=== PATIENT | female | born 1945 | race Caucasian/White ===

== ENCOUNTER 2018-04-08 14:38 | Emergency (ER) | payer MEDICARE, BC ==
[~2018-04-08] VITALS: Ht 157.5 cm; Wt 73.0 kg
[~2018-04-08 14:38] MED LIST: LISINOPRIL10 MG PO; NIFEDIPINE ER30 M1 PO
[2018-04-08] MEDS ORDERED: KETOROLAC TROMETHAMINE 60 MG/2 ML VIAL IM ONE (15:15)
[2018-04-08] MEDS ORDERED: HYDROMORPHONE 1MG/1ML INJ IV STA (16:14)
[2018-04-08] MEDS ORDERED: ONDANSETRON HCL INJ 2 MG/ML VIAL IV STA (16:14)
[2018-04-08] MEDS ORDERED: MORPHINE SULFATE 2 MG/ML SYR IV STA (16:26)
== END 2018-04-08 17:25 | disposition short-term general hospital (02) ==
LOC: FSED 14:38
DX: S72.011A Unspecified intracapsular fracture of right femur, initial encounter for closed fracture (principal); S32.591A Other specified fracture of right pubis, initial encounter for closed fracture; F32.0 Major depressive disorder, single episode, mild; E78.5 Hyperlipidemia, unspecified; I10 Essential (primary) hypertension; H40.9 Unspecified glaucoma; W01.0XXA Fall on same level from slipping, tripping and stumbling without subsequent striking against object, initial encounter; Y93.01 Activity, walking, marching and hiking; Y92.010 Kitchen of single-family (private) house as the place of occurrence of the external cause; Z88.0 Allergy status to penicillin
CPT/HCPCS: 73502; 80053; 85025; 96372; 96374; 96375; 99284; J1170; J1885; J2270; J2405